=== PATIENT | male | born 1970 | race Hispanic/Latino ===

== ENCOUNTER 2019-03-25 21:14 | Emergency (ER) | payer BC, OTHER ==
[2019-03-25] MEDS ORDERED: METOCLOPRAMIDE 10 MG/2mL INJ ONE (23:13)
[2019-03-25] MEDS ORDERED: NA CHLORIDE 0.9% 1,000 ML ONE (23:13)
[2019-03-25 23:15] LABS: Absolute Lymphocytes (CBC) 1.2 K/uL (0.7-4.9); Basophils % 0.5 % (0-1.3); Eosinophils % 0.4 % (0-4.4); Hematocrit 45.1 % (39.6-49.0); Lymphocytes % 11.3 % (15.3-44.8); Monocytes % 8.1 % (3.3-12.3); RBC Red Blood Cell Count 5.12 M/uL (4.33-5.43)
[2019-03-25 23:35] LABS: Albumin 4.2 g/dL (3.4-5.0); Bilirubin Total 0.5 mg/dL (0.2-1.0); Potassium 3.9 mmol/L (3.5-5.1); Protein, Total 8.2 g/dL (6.4-8.2)
[2019-03-26 01:37] LABS: Urine Blood TRACE (NEG); Urine Glucose NEGATIVE (NEG); Urine Protein TRACE (NEG); Urine Specific Gravity 1.025 (1.005-1.030); Urine pH 5.5 (5.0-7.0)
--- NOTE | 2019-03-26 01:51 | ER ---
Nurse's Notes [facility] Name: Domingo Sales Age: 48 yrs Sex: Male : 1970 Arrival Date: 03/25/2019 Time: 21:19 Bed 24 Private MD: Tonio Ferrera C Diagnosis: Headache;Flank Pain Presentation: 03/25 21:25 Presenting complaint: Patient states: Headache, generalized weakness, abdominal lp1 soreness since about noon today; States headache to back of head, denies any other symptoms. Transition of care: patient was not received from another setting of care. Onset of symptoms was March 25, 2019 at 12:00. Care prior to arrival: None. 21:25 Method Of Arrival: Ambulatory lp1 21:25 Acuity: MELIDA 3 lp1 21:28 Risk Assessment: Do you want to hurt yourself or someone else? Patient reports no lp1 desire to harm self or others. Initial Sepsis Screen: Does the patient meet any 2 criteria? No. Patient's initial sepsis screen is negative. Does the patient have a suspected source of infection? No. Patient's initial sepsis screen is negative. Note Patient states vitals were taking while at work and BP of 127/90, HR 127. Triage Assessment: 03/26 00:50 Headache History: The patient has had previous headaches and this one is more severe mg2 than previous episodes. General: Appears in no apparent distress. comfortable, Behavior is calm, cooperative. Pain: Complains of pain in right occipital area and left occipital area Also complains of flank pain. Historical: - Allergies: 03/25 21:26 No Known Allergies; lp1 - Home Meds: 21:26 None [Active]; lp1 - PMHx: 21:26 None; lp1 - PSHx: 21:26 None; lp1 - Immunization history:: Adult Immunizations up to date. - Social history:: Smoking status: Patient/guardian denies using tobacco. - Ebola Screening: : No symptoms or risks identified at this time. Screenin:29 Abuse screen: Denies threats or abuse. Denies injuries from another. Nutritional lp1 screening: No deficits noted. Tuberculosis screening: No symptoms or risk factors identified. Fall Risk None identified. Assessment: 22:47 General: Appears in no apparent distress. comfortable, Behavior is calm, cooperative. mg2 Pain: Complains of pain in head and back Pain does not radiate. Pain currently is 5 out of 10 on a pain scale. Quality of pain is described as aching, Pain began gradually, 1 day ago. Is intermittent. Neuro: Level of Consciousness is awake, alert, obeys commands, Oriented to person, place, time, situation. Neuro: Reports headache in entire. Cardiovascular: Capillary refill < 3 seconds Patient's skin is warm and dry. Respiratory: Airway is patent Respiratory effort is even, unlabored, Respiratory pattern is regular, symmetrical. GI: No signs and/or symptoms were reported involving the gastrointestinal system. : Reports pain in bilateral flank(s). EENT: No signs and/or symptoms were reported regarding the EENT system. Derm: Skin is intact, is healthy with good turgor, Skin is pink, warm \T\ dry. normal. Musculoskeletal: Circulation, motion, and sensation intact. Capillary refill < 3 seconds. 03/26 00:49 Reassessment: patient sent to ct scan via wheelchair. mg2 01:40 Reassessment: Provider at bedside to discuss results with patient and family; Patient lp1 states continued headache. Vital Signs: 03/25 21:27 BP 129 / 83; Pulse 102; Resp 18; Temp 98.9(O); Pulse Ox 96% on R/A; Weight 81.65 kg; lp1 Height 5 ft. 6 in. (167.64 cm); Pain 7/10; 22:49 BP 116 / 78; Pulse 87; Resp 18; Temp 98.5; Pulse Ox 96% on R/A; Pain 4/10; mg2 03/26 00:22 BP 114 / 68; Pulse 75; Resp 18; Temp 98.9; Pulse Ox 100% on R/A; Pain 5/10; mg2 01:30 BP 117 / 70; Pulse 71; Resp 16; Pulse Ox 97% on R/A; Pain 5/10; lp1 03/25 21:27 Body Mass Index 29.05 (81.65 kg, 167.64 cm) lp1 ED Course: 03/25 21:19 Patient arrived in ED. es 21:20 Tonio Ferrera MD is Private Physician. es 21:26 Triage completed. lp1 21:26 Arm band placed on left wrist. lp1 22:26 Chi Pina PA is PHCP. [facility] 22:26 Ramiro Fernandes MD is Attending Physician. [facility] 22:27 Hunter King, CHARO is Primary Nurse. mg2 22:49 Patient has correct armband on for positive identification. Pulse ox on. NIBP on. Door mg2 closed. Warm blanket given. 22:49 No provider procedures requiring assistance completed. mg2 23:16 Inserted saline lock: 20 gauge in right antecubital area, using aseptic technique. lp1 Blood collected. 23:45 CT completed. Patient tolerated procedure well. Patient moved to CT via wheelchair. Patient moved back from CT. 23:57 CT Head Brain wo Cont In Process Unspecified. EDMS 06 00:[address] via wheelchair. eh 00:57 CT completed. Patient tolerated procedure well. eh 01:00 Patient moved back from CT. eh 01:14 CT Abd/Pelvis - IV Contrast Only In Process Unspecified. EDDC 01:49 Phoenix Estrada MD is Referral Physician. [facility] 02:22 IV discontinued, No redness/swelling at site. Pressure dressing applied. lp1 Administered Medications: 03/25 23:15 Drug: NS 0.9% 1000 ml Route: IV; Rate: 1 bolus; Site: right antecubital; lp1 03/26 00:08 Follow up: Response: No adverse reaction; Marked relief of symptoms; IV Status: mg2 Completed infusion; IV Intake: 1000ml 03/25 23:15 Drug: Reglan 10 mg Route: IVP; Site: right antecubital; lp1 03/26 00:08 Follow up: Response: No adverse reaction; Marked relief of symptoms mg2 01:53 Drug: Ketorolac 30 mg Route: IVP; Site: right antecubital; lp1 02:22 Follow up: Response: Pain is decreased lp1 Intake: 00:08 IV: 1000ml; Total: 1000ml. mg2 Outcome: 01:50 Discharge ordered by . [facility] 02:22 Discharged to home ambulatory, with significant other. lp1 02:22 Condition: good 02:22 Discharge instructions given to patient, Instructed on discharge instructions, follow up and referral plans. Demonstrated understanding of instructions, follow-up care. 02:23 Patient left the ED. lp1 Signatures: Dispatcher [employer] [facility] Chi Pina PA PA jmEstela Shields Ervin eh Pena, Laura, RN RN lp1 Hunter King, RN RN mg2
--- NOTE | 2019-03-26 01:51 | EDPHYS ---
Physician Documentation [facility] Name: Domingo Sales Age: 48 yrs Sex: Male : 1970 Arrival Date: 03/25/2019 Time: 21:19 Bed 24 Private MD: Tonio Ferrera C ED Physician Ramiro Fernandes HPI: 03/25 22:53 This 48 yrs old Male presents to ER via Ambulatory with complaints of jmm Headache, Weakness, High Blood Pressure. 22:53 The patient complains of pain to the left occipital area and right occipital area. jmm Onset: The symptoms/episode began/occurred gradually, at 18:30. Associated signs and symptoms: Pertinent positives: nausea, weakness. The patient has experienced a previous episode. This is a 48 year old male with no chronic medical conditions that presents to the ED with complaints of headache which began at 630 pm while at work. patient states he became weak. While at work the patient was evaluated with an elevated heart rate and elevated blood pressure. Patient states having a similar headache in 2013. Denies fever, denies vomiting, denies abdominal pain, denies chest pain. . Historical: - Allergies: 21:26 No Known Allergies; lp1 - Home Meds: 21:26 None [Active]; lp1 - PMHx: 21:26 None; lp1 - PSHx: 21:26 None; lp1 - Immunization history:: Adult Immunizations up to date. - Social history:: Smoking status: Patient/guardian denies using tobacco. - Ebola Screening: : No symptoms or risks identified at this time. ROS: 22:53 Constitutional: Negative for fever, chills, and weight loss, Cardiovascular: Negative jmm for chest pain, palpitations, and edema, Respiratory: Negative for shortness of breath, cough, wheezing, and pleuritic chest pain. 22:53 Neuro: Positive for headache. 22:53 All other systems are negative. 22:53 Back: Positive for flank pain, bilaterally. jmm Exam: 22:53 Constitutional: This is a well developed, well nourished patient who is awake, alert, jmm and in no acute distress. Head/Face: atraumatic. Eyes: EOMI, no conjunctival erythema appreciated ENT: Moist Mucus Membranes Neck: Trachea midline, Supple Chest/axilla: Normal chest wall appearance and motion. Cardiovascular: Regular rate and rhythm. No edema appreciated Respiratory: Normal respirations, no respiratory distress appreciated Abdomen/GI: Non distended, soft Back: Normal ROM Skin: General appearance color normal MS/ Extremity: Moves all extremities, no obvious deformities appreciated, no edema noted to the lower extremities Neuro: Awake and alert, normal gait Psych: Behavior is normal, Mood is normal, Patient is cooperative and pleasant Vital Signs: 21:27 BP 129 / 83; Pulse 102; Resp 18; Temp 98.9(O); Pulse Ox 96% on R/A; Weight 81.65 kg; lp1 Height 5 ft. 6 in. (167.64 cm); Pain 7/10; 22:49 BP 116 / 78; Pulse 87; Resp 18; Temp 98.5; Pulse Ox 96% on R/A; Pain 4/10; mg2 03/26 00:22 BP 114 / 68; Pulse 75; Resp 18; Temp 98.9; Pulse Ox 100% on R/A; Pain 5/10; mg2 01:30 BP 117 / 70; Pulse 71; Resp 16; Pulse Ox 97% on R/A; Pain 5/10; lp1 03/25 21:27 Body Mass Index 29.05 (81.65 kg, 167.64 cm) lp1 MDM: 03/25 22:53 Patient medically screened. [facility] 03/26 01:47 Data reviewed: vital signs, nurses notes. Counseling: I had a detailed discussion with srinivas the patient and/or guardian regarding: the historical points, exam findings, and any diagnostic results supporting the discharge/admit diagnosis, lab results, radiology results, the need for outpatient follow up, to return to the emergency department if symptoms worsen or persist or if there are any questions or concerns that arise at home. ED course: Symptoms relieved in the ED. Ct negative. I do not suspect SAH. Patient is alert and non toxic in appearance. Neck is supple. I do not suspect meningitis. Patient is advised to follow up with neuro for further evaluation. Patient was otherwise given strict return precautions. Patient understood and agrees with the plan of care. . 03/25 22:53 Order name: CBC with Diff; Complete Time: 23:26 [facility] 03/25 22:53 Order name: CMP; Complete Time: 23:37 [facility] 03/25 22:54 Order name: CT Head Brain wo Cont [facility] 03/26 00:29 Order name: CT Abd/Pelvis - IV Contrast Only [facility] 03/26 00:32 Order name: Urine Dipstick--Ancillary (enter results); Complete Time: 01:38 2 03/25 22:53 Order name: Saline Lock; Complete Time: 23:17 [facility] 03/26 00:19 Order name: Urine Dipstick-Ancillary (obtain specimen); Complete Time: 00:29 [facility] Administered Medications: 03/25 23:15 Drug: NS 0.9% 1000 ml Route: IV; Rate: 1 bolus; Site: right antecubital; lp1 03/26 00:08 Follow up: Response: No adverse reaction; Marked relief of symptoms; IV Status: mg2 Completed infusion; IV Intake: 1000ml 03/25 23:15 Drug: Reglan 10 mg Route: IVP; Site: right antecubital; lp1 03/26 00:08 Follow up: Response: No adverse reaction; Marked relief of symptoms mg2 01:53 Drug: Ketorolac 30 mg Route: IVP; Site: right antecubital; 1 02:22 Follow up: Response: Pain is decreased lp1 Disposition: 02:41 Co-signature as Attending Physician, Ramiro Fernandes MD. Disposition: 03/26/19 01:50 Discharged to Home. Impression: Headache, Flank Pain. - Condition is Stable. - Discharge Instructions: Flank Pain, Adult, General Headache Without Cause. - Medication Reconciliation Form, Thank You Letter, Antibiotic Education, Prescription Opioid Use, Work release form form. - Follow up: Phoenix Estrada MD; When: 2 - 3 days; Reason: Recheck today's complaints, Continuance of care, Re-evaluation by your physician. Signatures: Dispatcher [employer] EDMS Chi Pina PA PA [facility] Jessie Fox RN RN 1 Ramiro Fernandes MD MD Hunter King RN mg2 Corrections: (The following items were deleted from the chart) 02:23 01:50 03/26/2019 01:50 Discharged to Home. Impression: Headache; Flank Pain. Condition lp1 is Stable. Forms are Medication Reconciliation Form, Thank You Letter, Antibiotic Education, Prescription Opioid Use. Follow up: Phoenix Estrada; When: 2 - 3 days; Reason: Recheck today's complaints, Continuance of care, Re-evaluation by your physician. jacob
[2019-03-26] MEDS ORDERED: KETOROLAC 30 MG/ML INJ ONE (02:07)
--- NOTE | 2019-03-26 11:17 | RAD REPORT ---
EXAM DESCRIPTION: CT Abdomen and Pelvis With Intravenous Contrast CLINICAL HISTORY: The patient is 48 years old and is Male; FLANK PAIN TECHNIQUE: Axial computed tomography images of the abdomen and pelvis with intravenous contrast. S agittal and coronal reformatted images were created and reviewed. This CT exam was performed using one or more of the following dose reduction techniques: automated exposure control, adjustment of t he mA and/or kV according to patient size, and/or use of iterative reconstruction technique. COMPARISON: No relevant prior studies available. FINDINGS: LUNG BASES: Unremarkable. No mass. No consolidation. ABDOMEN: LIVER: The liver is mildly enlarged. GALLBLADDER AND BILE DUCTS: No calcified stones. No ductal dilation. PANCREAS: No ductal dilation. No mass. SPLEEN: Unremarkable. ADRENALS: Unremarkable. No mass. KIDNEYS AND URETERS: An exophytic 2.9 cm left renal cyst is present. No follow-up imaging is rec ommended. The kidneys enhance symmetrically. No obstructing renal or ureteral calculus is seen. The re is no hydronephrosis or hydroureter of either kidney. STOMACH AND BOWEL: The stomach is decompressed. The small bowel is normal in caliber. A moderate amount stool is present throughout colon. There is no mucosal thickening or evidence of bowel obstru ction. PELVIS: APPENDIX: No findings to suggest acute appendicitis. BLADDER: Unremarkable. No mass. REPRODUCTIVE: Unremarkable as visualized. ABDOMEN and PELVIS: INTRAPERITONEAL SPACE: Unremarkable. No free air. No significant fluid collection. BONES/JOINTS: No acute fracture. SOFT TISSUES: The soft tissues are normal. VASCULATURE: Unremarkable. No abdominal aortic aneurysm. LYMPH NODES: Unremarkable. No enlarged lymph nodes. IMPRESSION: No acute findings on this contrasted CT of the abdomen and pelvis to explain the patient 's symptoms. Electronically signed by: Leah Madrigal MD 03/26/2019 1:27 AM CDT Due to temporary technical issues with the PACS/Fluency reporting system, reports are being signed by the in house radiologist as a courtesy to ensure prompt reporting. The interpreting radiologist is f ully responsible for the content of the report.
--- NOTE | 2019-03-26 11:37 | RAD REPORT ---
EXAM DESCRIPTION: CT HEAD WITHOUT IV CONTRAST EXAM DATE: 03/25/2019 10:54 PM CDT CLINICAL HISTORY: Headache. COMPARISON: None. TECHNIQUE: CT scan of the brain without IV contrast. This exam was performed according to our depa rtmental dose-optimization program, which includes automated exposure control, adjustment of the mA a nd/or kV according to patient size and/or use of iterative reconstruction technique. FINDINGS: The ventricles, cisterns, and sulci are age-appropriate. No evidence of acute infarction, intracranial hemorrhage, extra-axial fluid collection, or midline shift. No air-fluid levels are seen in the paranasal sinuses to suggest acute sinusitis. No depressed skull fracture. IMPRESSION: No acute intracranial findings. Electronically signed by: Conrado De La O MD 03/26/2019 12:05 AM CDT Due to temporary technical issues with the PACS/Fluency reporting system, reports are being signed by the in house radiologist as a courtesy to ensure prompt reporting. The interpreting radiologist is f ully responsible for the content of the report.
== END 2019-03-26 02:23 | disposition home or self-care (01) ==
LOC: ER 21:14
DX: R10.9 Unspecified abdominal pain (principal)
CPT/HCPCS: 36415; 70450; 74177; 80053; 81003; 85025; 96361; 96374; 96375; 99284; J2765; J7030; Q9967